=== PATIENT | male | born 1990 | race Caucasian/White ===

== ENCOUNTER 2016-12-02 15:44 | Day surgery (SDC) | payer OTHER, BC ==
[~2016-12-02] VITALS: Ht 182.9 cm; Wt 74.0 kg
--- NOTE | ~2016-12-02 | OR ---
PATIENT'S NAME: CALLY SIMON [facility] AGE: 25 Y [address] ROOM: [place] [id number] LOCATION: [facility] [place] ADMIT DATE: 12/02/2016 OR/Procedure Report DISCHARGE DATE: 12/02/2016 FAMILY PHYSICIAN: Valentín Graves MD ATTENDING PHYSICIAN: Misha Cabezas SURGEON: Misha Cabezas DO SHOP WELDER: Staff. DATE OF PROCEDURE: 12/02/2016 PREOPERATIVE DIAGNOSIS: Left thumb infection. POSTOPERATIVE DIAGNOSIS: Left thumb infection. PROCEDURE PERFORMED: Left thumb debridement to deep fascia. ANESTHESIA: General. ESTIMATED BLOOD LOSS: Less than 10 mL. TOURNIQUET TIME: Less than 20 minutes at 250 mmHg. COMPLICATION: None. DISPOSITION: Stable to recovery room. JUSTIFICATION FOR PROCEDURE: Cally Simon is a 25-year-old man with a history of bilateral redness, swelling, and pain in the hands with some red streaking up the forearms. He frequently gets abrasions and superficial cuts to his hands in his job at [employer], and he feels as though this is attributable to work-related trauma. He had no evidence of an abscess cavity on the right side; however, on the left side, there was evidence for a paronychia, which may have been extending to the flexor side of the finger. He was counseled as to treatment options, risks versus benefits, and necessary afterward care. He gave informed consent to proceed with left thumb debridement and any indicated procedures. PROCEDURE IN DETAIL: The patient was properly identified, both verbally and by name tag. He was taken to the operating suite, placed on the operating table in the supine position. The anesthesiologist administered general anesthetic and intubated him. Once adequate anesthesia was obtained, left upper extremity was prepped and draped in the usual sterile fashion. The extremity was exsanguinated with an Esmarch bandage and tourniquet inflated to level of the arm to 250 mmHg. A #15 blade knife was used to make a transverse incision over the proximal nail PATIENT'S NAME: CALLY SIMON [facility] AGE: 25 Y [address] ROOM: [place], [place] [id number] LOCATION: [facility] [place] ADMIT DATE: 12/02/2016 OR/Procedure Report DISCHARGE DATE: 12/02/2016 FAMILY PHYSICIAN: Valentín Graves MD ATTENDING PHYSICIAN: Misha Cabezas. A small amount of benign appearing fluid was expressed, this was sent for stat Gram stain, routine culture and sensitivity. Stat Gram stain was found to be negative. The palmar aspect of the thumb was then incised in an oblique fashion. Careful blunt dissection was carried down through the superficial to the deep fascia. There was no purulence in the pad, but there was some benign appearing fluid here as well. There was no purulence expressed from the flexor mechanism when milked distally toward the incision, and there was no necrotic tissue noted. The wounds were all copiously irrigated with saline. They were left open to heal by secondary intention, and a sterile bulky bundle dressing was applied after letting the tourniquet down and gaining hemostasis with minimal bipolar electrocautery and direct pressure. The patient was aroused from general anesthesia, extubated by the anesthesiologist, and taken to the recovery room in good condition. Immediate postoperative examination in the recovery room showed good capillary refill distally in the visible digits. The operative digit bandages showed no bleed through. Light touch sensation and motor function were grossly intact throughout. MISHA CABEZAS DO NTM/modl /[id number] d: 12/09/16 0255 t: 12/12/16 0809, OPERATIVE SUMMARY
[~2016-12-02 15:44] MED LIST: BACTRIM DS1 TAB PO; HYDROCODON-ACE1 EAC4 PO
[2016-12-02] MEDS ORDERED: PERCOCET 5-3251 EACH PO (18:50)
[2016-12-02] MEDS ORDERED: CIPRO500 MG PO (18:51)
[2016-12-02] MEDS ORDERED: CLEOCIN150 MG PO (18:53)
== END 2016-12-02 19:24 | disposition disaster alternative care site (69) ==
LOC: GSDC 15:44
PROC: 0JBK0ZZ Excision of Left Hand Subcutaneous Tissue and Fascia, Open Approach (ICD-10-PCS; principal; 2016-12-02)
DX: L08.9 Local infection of the skin and subcutaneous tissue, unspecified (principal); M79.89 Other specified soft tissue disorders; Z87.891 Personal history of nicotine dependence; Z98.890 Other specified postprocedural states
CPT/HCPCS: J0690; J1100; J2250; J2405; J7120